=== PATIENT | male | born 1940 | race Asian ===

== ENCOUNTER → 2017-02-23 | Outpatient (CLI) | payer OTHER | END | disposition home or self-care (01) | LOC: RADPV 09:46 | PROVIDERS: ATTEND Internal Medicine Cardiovascular Disease | DX: I35.1 Nonrheumatic aortic (valve) insufficiency (principal) | CPT/HCPCS: 93306 ==

== ENCOUNTER 2017-07-29 09:29 | Emergency (ER) | payer OTHER, MEDICAID ==
[~2017-07-29] VITALS: Ht 165.1 cm; Wt 65.5 kg
[2017-07-29] MEDS ORDERED: TAMS0.4C32 PO (09:39)
[2017-07-29] MEDS ORDERED: AMLO2.5T PO (09:39)
[2017-07-29] MEDS ORDERED: ATOR10TA84 PO (09:39)
[2017-07-29 10:27] LABS: APPEARANCE,URINE TURBID (CLEAR); GLUCOSE, URINE (UA) 100 mg/dL (NEGATIVE); KETONES,URINE >=80 mg/dL (NEGATIVE); LEUKOCYTE ESTERASE ,URINE LARGE (NEGATIVE); NITRATE,URINE POSITIVE (NEGATIVE); OCCULT BLOOD,URINE LARGE (NEGATIVE); PROTEIN,URINE SEE CONFIRM (NEGATIVE)
[2017-07-29 10:30] LABS: BILIRUBIN,URINE PRELIM. POSITIVE (NEGATIVE)
[2017-07-29 10:46] LABS: RBC,URINE >100 /HPF (0-2)
[2017-07-29 10:48] LABS: SULFOSALICYLIC ACID,URINE 4+ (Negative)
[2017-07-29 10:49] LABS: BACTERIA,URINE Few /HPF (None Seen)
[2017-07-29 10:50] LABS: SQUAMOUS EPITHELIAL CELL,UR Rare /LPF (None Seen)
[2017-07-29] MEDS ORDERED: CIPROFLOXACIN HCL 250 MG TABLET PO ONE (11:00)
[2017-07-29] MEDS ORDERED: KETOROLAC TROMETHAMINE 60 MG/2 ML VIAL IM ONE (11:00)
[2017-07-29] MEDS ORDERED: ACETAMINOPHEN 500 MG TABLET PO ONE (11:00)
[2017-07-29 12:43] VITALS: BP 125/73
== END 2017-07-29 13:11 | disposition home or self-care (01) ==
LOC: EMS 09:30
DX: N39.0 Urinary tract infection, site not specified (principal); N32.89 Other specified disorders of bladder; I10 Essential (primary) hypertension; E78.00 Pure hypercholesterolemia, unspecified
CPT/HCPCS: 74176; 81001; 96372; 99285; J1885

== ENCOUNTER 2017-08-07 09:02 | Emergency (ER) | payer OTHER, MEDICAID ==
[~2017-08-07] VITALS: Ht 167.6 cm; Wt 70.0 kg
[~2017-08-07 09:02] MED LIST: AMLO2.5T PO; ATOR10TA84 PO; TAMS0.4C32 PO
[2017-08-07 11:20] LABS: BASOPHILS % (AUTO) 0.3 % (0.0-2.0); EOSINOPHILS % (AUTO) 1.5 % (1.0-6.0); HEMATOCRIT 37.6 % (41-53); HEMOGLOBIN 12.8 g/dL (13.5-17.5); LYMPHOCYTES # (AUTO) 1.2 K/uL (1.0-4.8); LYMPHOCYTES % (AUTO) 18.3 % (22.0-44.0); MEAN CORPUSCULAR HEMOGLOBIN 29.7 pg (26.0-34.0); MEAN CORPUSCULAR VOLUME 87 fL (80-100); MONOCYTES # (AUTO) 0.6 K/uL (0.1-1.0); MONOCYTES % (AUTO) 9.4 % (2.0-9.0); NEUTROPHILS # (AUTO) 4.7 K/uL (1.8-7.7); NEUTROPHILS % (AUTO) 70.5 % (40.0-70.0); PLATELET COUNT (AUTO) 214 K/uL (150-450); RED BLOOD CELL COUNT(AUTO) 4.31 MIL/uL (4.50-5.90)
[2017-08-07 11:27] LABS: ANION GAP 8 mmol/L (8-16); CALCIUM, TOTAL 8.7 mg/dL (8.8-10.5); CARBON DIOXIDE 25 mmol/L (22-29); CHLORIDE 104 mmol/L (98-107); CREATININE 0.86 mg/dL (0.60-1.30); GLOMERULAR FILTR. RATE CALC > 60 mL/min (>60); GLUCOSE,RANDOM 115 mg/dL (70-110); POTASSIUM 4.1 mmol/L (3.5-5.1); SODIUM SERUM 137 mmol/L (136-145); UREA NITROGEN, BLOOD 14 mg/dL (7-18)
[2017-08-07 12:53] VITALS: BP 110/69
== END 2017-08-07 12:53 | disposition home or self-care (01) ==
LOC: EMS 09:03
DX: C67.9 Malignant neoplasm of bladder, unspecified (principal); N40.0 Benign prostatic hyperplasia without lower urinary tract symptoms; E78.00 Pure hypercholesterolemia, unspecified; I10 Essential (primary) hypertension; M10.9 Gout, unspecified; R42 Dizziness and giddiness
CPT/HCPCS: 99284

== ENCOUNTER 2017-09-30 07:04 | Emergency (ER) | payer OTHER ==
[~2017-09-30] VITALS: Ht 165.1 cm; Wt 69.1 kg
[2017-09-30 10:21] VITALS: BP 126/62
== END 2017-09-30 10:41 | disposition home or self-care (01) ==
LOC: EMS 07:05
DX: T83.091A Other mechanical complication of indwelling urethral catheter, initial encounter (principal); N32.0 Bladder-neck obstruction; I10 Essential (primary) hypertension; E78.00 Pure hypercholesterolemia, unspecified; Z90.79 Acquired absence of other genital organ(s)
CPT/HCPCS: 51702; 99284